=== PATIENT | female | born 1985 | race Caucasian/White ===

== ENCOUNTER → 2017-12-09 | Outpatient (CLI) | payer BC ==
[~2017-12-09] MED LIST: BCP; IBUP600 PO; IMODIUM; LOPE2C PO; LORA10ER; MUCINEX; MULVITMINE; NAPR500; ONDA4ODT MM; OXYACE5T; OXYACE5T PO; RXOXYACE PO; RXPROM25 PO; STOOL SOFTENER
[2017-12-11 13:13] LABS: HPV Genotype 16 Not Detected (NOTDET); HPV Genotype 18 Not Detected (NOTDET); HPV High Risk Other Not Detected (NOTDET)
== END ==
LOC: LAB 14:42
PROVIDERS: Advanced Practice Midwife
DX: Z01.419 Encounter for gynecological examination (general) (routine) without abnormal findings (principal)
CPT/HCPCS: 87624; G0123

== ENCOUNTER → 2018-01-01 | Outpatient (CLI) | payer BC, OTHER ==
[2018-01-01 12:31] LABS: BASOPHILS ABSOLUTE AUTO 0.03 K/mm3 (0.00-0.23); BASOPHILS PERCENT AUTO 0 % (0-2); EOSINOPHILS ABSOLUTE AUTO 0.05 K/mm3 (0.00-0.68); EOSINOPHILS PERCENT AUTO 0 % (0-6); Hematocrit 45.2 % (33.0-51.0); Hemoglobin 15.6 g/dL (11.5-16.0); IMMATURE GRAN ABSOLUTE AUTO 0.04 K/mm3 (0.00-0.10); IMMATURE GRAN PERCENT AUTO 0 % (0-1); LYMPHOCYTES ABSOLUTE AUTO 2.16 K/mm3 (0.84-5.20); LYMPHOCYTES PERCENT AUTO 15 % (21-46); MONOCYTES ABSOLUTE AUTO 0.63 K/mm3 (0.16-1.47); MONOCYTES PERCENT AUTO 4 % (4-13); Mean Corpuscular HGB 30.4 pg (26.0-34.0); Mean Corpuscular HGB Conc 34.5 g/dL (31.5-36.5); Mean Corpuscular Volume 88 fL (80-100); Mean Platelet Volume 10.5 fL (9.1-12.4); NEUTROPHILS ABSOLUTE AUTO 11.25 K/mm3 (1.96-9.15); NEUTROPHILS PERCENT AUTO 79 % (41-73); Platelet Count 307 K/mm3 (150-400); RDW Coefficient Variation 11.9 % (11.7-14.2); RDW Standard Deviation 38.2 fL (35.1-46.3); Red Blood Cell Count 5.13 M/mm3 (3.80-5.20); White Blood Cell Count 14.16 K/mm3 (4.00-11.30)
[2018-01-01 12:40] LABS: Anion Gap 10 mmol/L (6-16); Blood Urea Nitrogen 10 mg/dL (8-24); Bun/Creatinine Ratio 13.5 (12.0-20.0); CO2, Blood 27 mmol/L (21-32); Calcium, Blood 10.4 mg/dL (8.5-10.1); Chloride, Blood 99 mmol/L (98-108); Creatinine, Blood 0.74 mg/dL (0.40-1.00); Glomerular Filtration Rate >60 (60-); Glucose, Blood 82 mg/dL (70-99); Potassium, Blood 3.9 mmol/L (3.5-5.5); Sodium, Blood 136 mmol/L (136-145)
== END ==
LOC: LAB SHORT 12:25 → LAB EV 12:25
PROVIDERS: Physician Assistant Surgical
DX: N39.0 Urinary tract infection, site not specified (principal); R10.31 Right lower quadrant pain
CPT/HCPCS: 80048; 85025; 87077; 87086; 87186

== ENCOUNTER → 2019-07-21 | Outpatient (CLI) | payer OTHER ==
[~2019-07-21] MED LIST changes: +IBUP800 PO; +OMEP20ER PO; +Percocet 5-3251 EACH PO
== END ==
LOC: LAB 17:39 → LAB SHORT 17:39
DX: Z34.83 Encounter for supervision of other normal pregnancy, third trimester (principal); Z3A.36 36 weeks gestation of pregnancy
CPT/HCPCS: 87081; 87653

== ENCOUNTER 2019-08-04 00:05 | Inpatient (IN) | payer OTHER ==
[~2019-08-04] VITALS: Ht 162.6 cm; Wt 75.9 kg
[~2019-08-04 00:05] MED LIST changes: -IBUP800 PO; -Percocet 5-3251 EACH PO
[2019-08-04 10:48] LABS: BASOPHILS ABSOLUTE AUTO 0.05 K/mm3 (0.00-0.23); BASOPHILS PERCENT AUTO 0 % (0-2); EOSINOPHILS ABSOLUTE AUTO 0.01 K/mm3 (0.00-0.68); EOSINOPHILS PERCENT AUTO 0 % (0-6); Hematocrit 46.4 % (33.0-51.0); Hemoglobin 15.8 g/dL (11.5-16.0); IMMATURE GRAN ABSOLUTE AUTO 0.19 K/mm3 (0.00-0.10); IMMATURE GRAN PERCENT AUTO 1 % (0-1); LYMPHOCYTES ABSOLUTE AUTO 1.75 K/mm3 (0.84-5.20); LYMPHOCYTES PERCENT AUTO 8 % (21-46); MONOCYTES ABSOLUTE AUTO 0.91 K/mm3 (0.16-1.47); MONOCYTES PERCENT AUTO 4 % (4-13); Mean Corpuscular HGB 31.6 pg (26.0-34.0); Mean Corpuscular HGB Conc 34.1 g/dL (31.5-36.5); Mean Corpuscular Volume 93 fL (80-100); Mean Platelet Volume 11.2 fL (9.1-12.4); NEUTROPHILS ABSOLUTE AUTO 20.01 K/mm3 (1.96-9.15); NEUTROPHILS PERCENT AUTO 87 % (41-73); Platelet Count 279 K/mm3 (150-400); RDW Coefficient Variation 12.1 % (11.7-14.2); RDW Standard Deviation 41.6 fL (35.1-46.3); White Blood Cell Count 22.92 K/mm3 (4.00-11.30)
--- NOTE | 2019-08-04 13:02 | NUR ---
08/04/19 1302 Ligia Thakkar 1238 DELIVERY MALE , NB TAKEN IMMEDIATELY OVER TO [facility], PER DR JONES UTERINE APBRUPTION AT DELIVERY, UABLE TO COLLECT UMBILICAL CORD BLOOD FOR COLLECTION KIT, PLACENTA SENT TO PATHOLOGY
[2019-08-04 13:03] LABS: PCO2 Cord - Venous 64.3 mmHg (40-50); PO2 Cord - Venous 19.4 mmHg (28-32); pH Umbilical Cord - Venous 6.99 (7.26-7.35)
[2019-08-04 13:04] LABS: PCO2 Cord - Arterial 47.4 mmHg (40-50); PO2 Cord - Arterial 15.4 mmHg (16-20); pH Cord - Arterial 6.96 (7.28-7.35)
--- NOTE | 2019-08-04 14:47 | NUR ---
SURROGATE , BABY RECOVERING WITH BIOLOGIC PARENTS
--- NOTE | 2019-08-04 15:35 | NUR ---
REPT OFF TO Dinah LE RN AND Dale SWIFT RN FROM PACU RECOVERY
[2019-08-04 15:57] LABS: BASOPHILS ABSOLUTE AUTO 0.03 K/mm3 (0.00-0.23); BASOPHILS PERCENT AUTO 0 % (0-2); EOSINOPHILS PERCENT AUTO 0 % (0-6); Hemoglobin 12.2 g/dL (11.5-16.0); IMMATURE GRAN ABSOLUTE AUTO 0.17 K/mm3 (0.00-0.10); IMMATURE GRAN PERCENT AUTO 1 % (0-1); LYMPHOCYTES ABSOLUTE AUTO 1.08 K/mm3 (0.84-5.20); LYMPHOCYTES PERCENT AUTO 5 % (21-46); MONOCYTES ABSOLUTE AUTO 0.83 K/mm3 (0.16-1.47); MONOCYTES PERCENT AUTO 4 % (4-13); Mean Corpuscular HGB 30.7 pg (26.0-34.0); Mean Corpuscular HGB Conc 33.9 g/dL (31.5-36.5); Mean Corpuscular Volume 91 fL (80-100); Mean Platelet Volume 10.4 fL (9.1-12.4); NEUTROPHILS PERCENT AUTO 90 % (41-73); Platelet Count 247 K/mm3 (150-400); RDW Standard Deviation 39.8 fL (35.1-46.3); Red Blood Cell Count 3.97 M/mm3 (3.80-5.20); White Blood Cell Count 22.01 K/mm3 (4.00-11.30)
--- NOTE | 2019-08-04 16:28 | NUR ---
PT SITTING UP, ALERT TALKING WITH FAMILY AT THIS TIME. PATIENT HAS BEEN TOLERATING ICE CHIPS AND CRACKERS AND IS NOW REQUESTING MORE FOOD.
[2019-08-04 18:47] LABS: BASOPHILS ABSOLUTE AUTO 0.03 K/mm3 (0.00-0.23); BASOPHILS PERCENT AUTO 0 % (0-2); EOSINOPHILS PERCENT AUTO 0 % (0-6); Hematocrit 31.7 % (33.0-51.0); IMMATURE GRAN PERCENT AUTO 1 % (0-1); LYMPHOCYTES ABSOLUTE AUTO 1.23 K/mm3 (0.84-5.20); LYMPHOCYTES PERCENT AUTO 6 % (21-46); MONOCYTES ABSOLUTE AUTO 0.85 K/mm3 (0.16-1.47); MONOCYTES PERCENT AUTO 4 % (4-13); Mean Corpuscular HGB 32.2 pg (26.0-34.0); Mean Corpuscular HGB Conc 34.7 g/dL (31.5-36.5); Mean Corpuscular Volume 93 fL (80-100); Mean Platelet Volume 10.7 fL (9.1-12.4); NEUTROPHILS ABSOLUTE AUTO 18.31 K/mm3 (1.96-9.15); NEUTROPHILS PERCENT AUTO 89 % (41-73); Platelet Count 217 K/mm3 (150-400); RDW Coefficient Variation 12.1 % (11.7-14.2); RDW Standard Deviation 40.7 fL (35.1-46.3); Red Blood Cell Count 3.42 M/mm3 (3.80-5.20); White Blood Cell Count 20.52 K/mm3 (4.00-11.30)
[2019-08-04 21:59] LABS: BASOPHILS ABSOLUTE AUTO 0.02 K/mm3 (0.00-0.23); BASOPHILS PERCENT AUTO 0 % (0-2); EOSINOPHILS PERCENT AUTO 0 % (0-6); Hematocrit 29.4 % (33.0-51.0); Hemoglobin 10.2 g/dL (11.5-16.0); IMMATURE GRAN ABSOLUTE AUTO 0.09 K/mm3 (0.00-0.10); IMMATURE GRAN PERCENT AUTO 1 % (0-1); LYMPHOCYTES ABSOLUTE AUTO 1.53 K/mm3 (0.84-5.20); LYMPHOCYTES PERCENT AUTO 8 % (21-46); MONOCYTES ABSOLUTE AUTO 0.97 K/mm3 (0.16-1.47); MONOCYTES PERCENT AUTO 5 % (4-13); Mean Corpuscular HGB Conc 34.7 g/dL (31.5-36.5); Mean Corpuscular Volume 92 fL (80-100); Mean Platelet Volume 10.3 fL (9.1-12.4); NEUTROPHILS ABSOLUTE AUTO 15.77 K/mm3 (1.96-9.15); NEUTROPHILS PERCENT AUTO 86 % (41-73); Platelet Count 196 K/mm3 (150-400); RDW Coefficient Variation 12.2 % (11.7-14.2); RDW Standard Deviation 40.9 fL (35.1-46.3); Red Blood Cell Count 3.19 M/mm3 (3.80-5.20); White Blood Cell Count 18.38 K/mm3 (4.00-11.30)
--- NOTE | 2019-08-05 01:02 | NUR ---
MIDNIGHT BP NOTED TO BE 80'S/50'S WITH HR OF 70. DATA INTEGRITY CONSULTANT WAS NOTIFIED AND PULSE OXIMETER PLACED READING 96%. PT DENIES DIZZINESS OR SHORTNESS OF BREATH. RN REASSESSED PT'S UTERINE BLEEDING AND FUNDUS WAS FOUND TO BE FIRM AT 1 FINGER BELOW UMBILICUS WITH SCANT BLEEDING. ABDOMEN WAS SOFT AND NON-TENDER WITH INCISIONAL DRAINAGE UNCHAGED FROM INITIAL SHIFT ASSESSMENT. PT PLACED ON CONTINUOUS SPO2 AND Q15MIN BP'S FOR CONTINUED MONITORING.
[2019-08-05 02:44] LABS: BASOPHILS ABSOLUTE AUTO 0.02 K/mm3 (0.00-0.23); BASOPHILS PERCENT AUTO 0 % (0-2); EOSINOPHILS ABSOLUTE AUTO 0.04 K/mm3 (0.00-0.68); EOSINOPHILS PERCENT AUTO 0 % (0-6); Hematocrit 28.7 % (33.0-51.0); Hemoglobin 9.8 g/dL (11.5-16.0); IMMATURE GRAN ABSOLUTE AUTO 0.08 K/mm3 (0.00-0.10); IMMATURE GRAN PERCENT AUTO 1 % (0-1); LYMPHOCYTES ABSOLUTE AUTO 2.07 K/mm3 (0.84-5.20); LYMPHOCYTES PERCENT AUTO 14 % (21-46); MONOCYTES ABSOLUTE AUTO 0.93 K/mm3 (0.16-1.47); MONOCYTES PERCENT AUTO 6 % (4-13); Mean Corpuscular HGB 31.8 pg (26.0-34.0); Mean Corpuscular HGB Conc 34.1 g/dL (31.5-36.5); Mean Corpuscular Volume 93 fL (80-100); Mean Platelet Volume 10.6 fL (9.1-12.4); NEUTROPHILS PERCENT AUTO 79 % (41-73); Platelet Count 188 K/mm3 (150-400); RDW Coefficient Variation 12.3 % (11.7-14.2); RDW Standard Deviation 41.8 fL (35.1-46.3); Red Blood Cell Count 3.08 M/mm3 (3.80-5.20); White Blood Cell Count 14.84 K/mm3 (4.00-11.30)
--- NOTE | 2019-08-05 03:13 | NUR ---
PT BLEEDING REASSESED AFTER CONTINUED BP'S IN THE 80/50'S. ASSESSMENT UNCHANGED.
--- NOTE | 2019-08-05 05:51 | NUR ---
ATTEMPTED TO DANGLE PT, BUT PT REQUESTED NOT TO DANGLE AT THIS TIME. BP'S STILL REMAIN 80/50'S WITH ALL OTHER VS STABLE. CONTINUOUS SPO2 AND Q15MIN BP STILL RUNNING.
[2019-08-05 06:27] LABS: BASOPHILS ABSOLUTE AUTO 0.02 K/mm3 (0.00-0.23); BASOPHILS PERCENT AUTO 0 % (0-2); EOSINOPHILS ABSOLUTE AUTO 0.09 K/mm3 (0.00-0.68); EOSINOPHILS PERCENT AUTO 1 % (0-6); Hematocrit 27.8 % (33.0-51.0); Hemoglobin 9.3 g/dL (11.5-16.0); IMMATURE GRAN ABSOLUTE AUTO 0.12 K/mm3 (0.00-0.10); IMMATURE GRAN PERCENT AUTO 1 % (0-1); LYMPHOCYTES ABSOLUTE AUTO 2.33 K/mm3 (0.84-5.20); LYMPHOCYTES PERCENT AUTO 18 % (21-46); MONOCYTES ABSOLUTE AUTO 0.67 K/mm3 (0.16-1.47); MONOCYTES PERCENT AUTO 5 % (4-13); Mean Corpuscular HGB 30.9 pg (26.0-34.0); Mean Corpuscular HGB Conc 33.5 g/dL (31.5-36.5); Mean Corpuscular Volume 92 fL (80-100); Mean Platelet Volume 10.5 fL (9.1-12.4); NEUTROPHILS ABSOLUTE AUTO 9.99 K/mm3 (1.96-9.15); NEUTROPHILS PERCENT AUTO 76 % (41-73); Platelet Count 177 K/mm3 (150-400); RDW Coefficient Variation 12.4 % (11.7-14.2); RDW Standard Deviation 41.7 fL (35.1-46.3); Red Blood Cell Count 3.01 M/mm3 (3.80-5.20); White Blood Cell Count 13.22 K/mm3 (4.00-11.30)
--- NOTE | 2019-08-05 07:40 | NUR ---
UPDATED DR. JONES REGARDING PATIENT LOW PRESSURES. HR AND O2 SATS STABLE. PATIENT ASYMPTOMATIC. UP EATING BREAKFAST TALKING. DENIES ANY DIZZINESS. DR. JONES GAVE THE OKAY TO MEDICATE THE PATIENT WITH PAIN MEDICATION WITH PATIENT BP. RN MEDICATED WITH 1 PERCOCET. BP CYCLING AT 15 MIN INTERVALS. CONT PULSE OX IN PLACE. FLUID BOLUS RUNNING. RN WILL CONTINUE TO MONITOR.
--- NOTE | 2019-08-05 09:06 | NUR ---
0900 TO RADIOLOGY VIA BED FOR CT SCAN
--- NOTE | 2019-08-05 12:00 | NUR ---
PATIENT BEEN HAVING LOW BLOOD PRESSURES T/O MORNING 80-90 SYSTOLIC. 2ND FLUID BOLUS RUNNING. MCKEE CATHETER IS TO REMAIN IN PLACE PER DR. JONES ORDERS. WILL GET PATIENT UP TO THE SHOWER AFTER FLUID BOLUS AND PRESSURE IS STABLE.
--- NOTE | 2019-08-05 14:00 | NUR ---
PATIENT HAS VISITORS AT THIS TIME. DOES NOT WANT TO GET UP AND SHOWER. SAYS SHE WILL CALL WHEN SHE IS READY TO GET UP.
--- NOTE | 2019-08-05 17:00 | NUR ---
PATIENT UP AND WALKED TO BATHROOM. PATIENT STATED SHE FELT A LITTLE WEAK. PATIENT SAT ON THE TOILET AND RN GAVE SPONGE BATH. MCKEE CATHETER LEFT IN PLACE. DRESSING REMOVED, STERI STRIPS FAIRLY SATURATED. DR. JONES NOTIFIED. GAVE ORDERS TO REPLACE STERI STRIPS. RN WILL CONTINUE TO MONITOR. VSS.
--- NOTE | 2019-08-05 18:34 | NUR ---
RN SPOKE WITH DR JONES. MCKEE CATHETER CAN STAY IN PLACE UNTILL TOMORROW MORNING PER PATIENT PREFERENCE.
--- NOTE | 2019-08-05 18:36 | NUR ---
NEW STERI STRIPS PLACED. ABD PAD IN PLACE.
[2019-08-06] MEDS ORDERED: Percocet 5-3251 EACH PO (07:46)
[2019-08-06] MEDS ORDERED: IBUP800 PO (07:47)
--- NOTE | 2019-08-06 10:23 | NUR ---
PT WOULD LIKE TO SHOWER, BUT EACH TIMEIN ROOM, PT WANTS TO WAIT, WILL TAKE MOTRIN IN AT 1130
--- NOTE | 2019-08-06 15:14 | NUR ---
pt dashawn is here will let rn know when she is ready to go
== END 2019-08-06 15:20 | disposition home or self-care (01) | DRG 787 ==
LOC: OBS 00:05 → BC 00:05 → OBS 05:59 → BC 06:00 → OBS 08:24 → BC 08:24 → OBS 08:25 → BC 08:25
PROVIDERS: Advanced Practice Midwife; ADMIT Obstetrics & Gynecology
PROC: 0TQB0ZZ Repair Bladder, Open Approach (ICD-10-PCS; 2019-08-04)
PROC: 10D00Z1 Extraction of Products of Conception, Low, Open Approach (ICD-10-PCS; principal; 2019-08-04 12:00)
DX: O34.211 Maternal care for low transverse scar from previous cesarean delivery (principal); O71.5 Other obstetric injury to pelvic organs; Z3A.38 38 weeks gestation of pregnancy; Z37.0 Single live birth
CPT/HCPCS: 36415; 74178; 82803; 85025; 86850; 86900; 86901; 86923; 88307; 96372; G0378; J0690; J0694; J1100; J1885; J2270; J2370; J2405; J2550; J2590; J2704; J2765; J3010; J7120; Q9967

== ENCOUNTER → 2022-06-08 | Outpatient (CLI) | payer BC ==
[~2022-06-08] MED LIST changes: +IBUP800 PO; +Percocet 5-3251 EACH PO
== END | disposition home or self-care (01) ==
LOC: LAB 11:00 → LAB SHORT 11:00
DX: R10.9 Unspecified abdominal pain (principal)
CPT/HCPCS: 87086

== ENCOUNTER → 2022-07-29 | Outpatient (CLI) | payer BC ==
[2022-07-30 09:09] LABS: HIV AB/P24 AG SCREEN Non Reactive (Non Reactive)
[2022-07-31 00:10] LABS: HBSAG SCREEN Negative (Negative); HCV ANTIBODY <0.1 (0.0-0.9)
== END | disposition home or self-care (01) ==
LOC: LAB 16:25 → LAB SHORT 16:25
PROVIDERS: Physician Assistant Medical
DX: Z20.9 Contact with and (suspected) exposure to unspecified communicable disease (principal)
CPT/HCPCS: 84460; 86317; 86803; 87340; 87389

== ENCOUNTER → 2022-09-09 | Outpatient (CLI) | payer BC ==
[2022-09-11 06:17] LABS: HIV AB/P24 AG SCREEN Non Reactive (Non Reactive)
== END ==
LOC: LAB SHORT 18:29 → LAB 18:29
PROVIDERS: Family Medicine
DX: Z20.9 Contact with and (suspected) exposure to unspecified communicable disease (principal)
CPT/HCPCS: 86803; 87389

== ENCOUNTER → 2022-10-22 | Outpatient (CLI) | payer BC ==
[2022-10-23 08:10] LABS: HIV AB/P24 AG SCREEN Non Reactive (Non Reactive)
== END | disposition home or self-care (01) ==
LOC: LAB SHORT 16:51
PROVIDERS: Chiropractor
DX: Z20.9 Contact with and (suspected) exposure to unspecified communicable disease (principal)
CPT/HCPCS: 87389

== ENCOUNTER → 2023-01-27 | Outpatient (CLI) | payer OTHER ==
[2023-01-28 15:12] LABS: HCV ANTIBODY Non Reactive (Non Reactive); HIV AB/P24 AG SCREEN Non Reactive (Non Reactive)
== END | disposition home or self-care (01) ==
LOC: LAB SHORT 17:56
PROVIDERS: Family Medicine
DX: Z20.9 Contact with and (suspected) exposure to unspecified communicable disease (principal)
CPT/HCPCS: 84460

== ENCOUNTER → 2023-06-04 | Outpatient (CLI) | payer SELFPAY | LOC: LAB 06:00 → LAB SHORT 06:00 → LAB FUT 06-03 10:00 | DX: R10.13 Epigastric pain (principal) | CPT/HCPCS: 87338 ==

== ENCOUNTER → 2024-07-05 | Outpatient (CLI) | payer BC | END | disposition home or self-care (01) | LOC: LAB 06:37 → LAB SHORT 06:37 | DX: R30.0 Dysuria (principal) | CPT/HCPCS: 87086 ==

== ENCOUNTER → 2024-07-08 | Outpatient (CLI) | payer BC | LOC: LAB SHORT 18:59 → LAB 18:59 | DX: M54.9 Dorsalgia, unspecified (principal); R10.9 Unspecified abdominal pain | CPT/HCPCS: 87086 ==

== ENCOUNTER → 2024-07-09 | Outpatient (CLI) | payer BC ==
[2024-07-09 15:29] LABS: BASOPHILS ABSOLUTE AUTO 0.07 K/mm3 (0.00-0.23); BASOPHILS PERCENT AUTO 1 % (0-2); EOSINOPHILS ABSOLUTE AUTO 0.17 K/mm3 (0.00-0.68); EOSINOPHILS PERCENT AUTO 2 % (0-6); Hematocrit 45.1 % (33.0-51.0); Hemoglobin 15.1 g/dL (11.5-16.0); IMMATURE GRAN ABSOLUTE AUTO 0.02 K/mm3 (0.00-0.10); IMMATURE GRAN PERCENT AUTO 0 % (0-1); LYMPHOCYTES ABSOLUTE AUTO 2.87 K/mm3 (0.84-5.20); LYMPHOCYTES PERCENT AUTO 30 % (21-46); MONOCYTES ABSOLUTE AUTO 0.53 K/mm3 (0.16-1.47); MONOCYTES PERCENT AUTO 6 % (4-13); Mean Corpuscular HGB 30.6 pg (26.0-34.0); Mean Corpuscular HGB Conc 33.5 g/dL (31.5-36.5); Mean Corpuscular Volume 91 fL (80-100); Mean Platelet Volume 9.9 fL (9.1-12.4); NEUTROPHILS ABSOLUTE AUTO 5.78 K/mm3 (1.96-9.15); NEUTROPHILS PERCENT AUTO 61 % (41-73); Platelet Count 333 K/mm3 (150-400); RDW Coefficient Variation 12.2 % (11.7-14.2); RDW Standard Deviation 40.3 fL (35.1-46.3); Red Blood Cell Count 4.94 M/mm3 (3.80-5.20); White Blood Cell Count 9.44 K/mm3 (4.00-11.30)
[2024-07-09 15:46] LABS: Albumin, Blood 4.1 g/dL (3.4-5.0); Albumin/Globulin Ratio 1.2 (0.8-1.8); Bilirubin, Total 0.5 mg/dL (0.1-1.0); Bun/Creatinine Ratio 13.4 (12.0-20.0); Calcium, Blood 9.5 mg/dL (8.5-10.1); Creatinine, Blood 0.82 mg/dL (0.40-1.00); Globulin, Blood 3.5 g/dL (2.2-4.0); Potassium, Blood 3.8 mmol/L (3.5-5.5); Total Protein, Blood 7.6 g/dL (6.4-8.2)
== END ==
LOC: LAB 15:23 → LAB SHORT 15:23
PROVIDERS: Chiropractor
DX: R10.84 Generalized abdominal pain (principal)
CPT/HCPCS: 80053; 83690; 85025

== ENCOUNTER → 2024-08-10 | Outpatient (CLI) | payer BC ==
[2024-08-18 10:34] LABS: HPV HIGH RISK BY TMA Not Detected; HPV SOURCE Cervical
== END ==
LOC: LAB 10:23 → LAB SHORT 10:23
PROVIDERS: Family Medicine
DX: Z12.4 Encounter for screening for malignant neoplasm of cervix (principal)
CPT/HCPCS: 87624; G0123

== ENCOUNTER → 2025-05-23 | Outpatient (CLI) | payer OTHER ==
[2025-05-24 03:24] LABS: Campylobacter Sp Not Detected (NOT DETECT); E. Coli O157 Not Detected (NOT DETECT); Enteroaggregative E. coli-EAEC Not Detected (NOT DETECT); Enteropathogenic E. coli-EPEC Not Detected (NOT DETECT); Enterotoxigenic E. coli-ETEC Not Detected (NOT DETECT); Salmonella Sp Not Detected (NOT DETECT); Shiga Toxin-prod E. coli-STEC Not Detected (NOT DETECT); Shigella/Enteroin E. coli-EIEC Not Detected (NOT DETECT); Vibrio Sp Not Detected (NOT DETECT)
[2025-05-27 20:00] LABS: CALPROTECTIN,FECAL 18 ug/g (<=49); PANCREATIC ELASTASE,FECAL >800 ug/g (>=100)
== END ==
LOC: LAB SHORT 16:57 → LAB 16:57
PROVIDERS: Family Medicine
DX: R19.7 Diarrhea, unspecified (principal)
CPT/HCPCS: 82653; 83993; 87507